=== PATIENT | female | born 1975 | race Caucasian/White ===

== ENCOUNTER 2024-06-09 13:28 | Outpatient (CLI) | payer BC, SELFPAY | END 2024-06-09 13:29 | disposition home or self-care (01) | LOC: MRI 13:30 | PROVIDERS: Visit Provider Orthopaedic Surgery | DX: M25.561 Pain in right knee (principal); S83.241A Other tear of medial meniscus, current injury, right knee, initial encounter; M17.11 Unilateral primary osteoarthritis, right knee; M25.461 Effusion, right knee; M71.21 Synovial cyst of popliteal space [Baker], right knee | CPT/HCPCS: 73721 ==

== ENCOUNTER 2024-06-21 11:43 | Outpatient (CLI) | payer BC, SELFPAY | END 2024-06-21 11:44 | disposition home or self-care (01) | PROVIDERS: PCP Emergency Medicine; Visit Provider Emergency Medicine | DX: Z01.818 Encounter for other preprocedural examination (principal) | CPT/HCPCS: 80048 ==

== ENCOUNTER 2024-06-29 06:01 | Day surgery (SDC) | payer BC, SELFPAY ==
[2024-06-29] VITALS (21 sets, daily range): BP systolic 97–147; BP diastolic 64–115; PULSE 81–101; RESP 8–21; TEMP 35.9–36.9; O2SAT 92–98; BMI 37.2
[2024-06-29] MEDS: LACTATED RINGERS 1000 ML 1,000 ML 100 ML IV ×2 (06:42→10:33)
[2024-06-29] MEDS: SODIUM CHLORIDE 0.9 % (FLUSH) 10 ML SYRINGE IVF (06:42)
[2024-06-29 06:52] LABS: Ur HCG Qualitative* Negative (Negative)
--- NOTE | 2024-06-29 07:04 | W.PM.H&PU ---
History & Physical Update History & Physical Update H&P Reviewed and patient assessed: No changes noted
--- NOTE | 2024-06-29 07:04 | PM.ORPRC ---
Procedure Note Date of procedure: 06/29/24 Procedure: PREOPERATIVE DIAGNOSIS: 1. Right knee medial meniscus root tear 2. Right knee chondromalacia POSTOPERATIVE DIAGNOSIS: 1. Right knee medial meniscus root tear 2. Right knee chondromalacia PROCEDURE: 1. Right knee arthroscopic medial meniscus root repair SURGEON: Tariq Roberson M.D. IT TELECOM TECHNICIAN: Jade Sanchez P.A.-C.. An patient clerical assistant was critical for this case to aid in patient positioning, knee manipulation, instrument exchange, and closure. ANESTHESIA: Spinal EBL: 5 mL TOURNIQUET: 95 minutes at 250 mmHg COMPLICATIONS: None evident IMPLANTS: Arthrex SutureLoc Implant INDICATIONS: Patient is a 49-year-old female with recent history of right knee pain and locking. MRI was performed, which revealed a medial meniscus root tear. Recommendation was subsequent made for surgical intervention consisting medial meniscus root repair to improve symptoms and reduce risk and rate of arthritis progression. I to surgery risks and benefits of procedure discussed with patient all questions were answered and informed consent was obtained. FINDINGS: Examination under anesthesia revealed negative Robyn's and posterior drawer. Knee was stable to varus and valgus stress. Arthroscopic examination revealed a complete tear of the medial meniscus at its posterior root attachment. Diffuse grade 3 chondromalacia involving the medial femoral condyle and medial tibial plateau with grade 2 to grade 3 chondral changes of the lateral tibial plateau. Grade 3 chondromalacia of the central trochlea and central patella. Normal cartilage of the lateral femoral condyle. ACL and PCL intact. Lateral meniscus was intact. DESCRIPTION OF PROCEDURE: Patient was seen preoperatively and operative site was marked. She was then brought to the operating room where spinal anesthesia was administered. Patient was then placed supine on the operating table, and she was given IV Ancef preoperatively for prophylaxis. The right lower extremity was prepped and draped in the appropriate sterile fashion, and the operative leg was placed into the leg uriarte. A surgical time-out was performed confirming patient identity, surgical site, and procedure. The right lower extremity was exsanguinated and tourniquet inflated to 250 mmHg.. Anterolateral and anteromedial portal sites were injected with cortisone Marcaine with epinephrine. Anterolateral portal established with an 11 blade. Anteromedial portals and established after localization with spinal needle. A portion of the retropatellar fat pad was removed with the shaver to allow for adequate visualization. Diagnostic arthroscopy was performed with findings as noted above. Attention was then directed to the repair of the medial meniscus. Arthroscopic shaver and radiofrequency ablator were used to clear soft tissue medial to the PCL to allow for visualization of the root attachment site. Root attachment site was then debrided using the shaver. A passport cannula was placed into the anteromedial portal, and camera was moved into the anterolateral portal. The drill guide inserted and placed in the appropriate position in the center of the root attachment footprint. A small incision was made over the anterior medial proximal tibia to allow for the guide to sit on the cortex of the anterior medial proximal tibia. The 2.4 mm drill pin was drilled to create a transtibial tunnel. After the 1st pass, this tunnel was slightly anterior to the intended fixation site, so tunnel was redrilled. After drilling the tunnel, a SutureLasso was used to shuttle a SutureLoc implant into position. SutureLoc was then secured into position. One of the repair sutures was then passed using the knee scorpion, however, when tensioning this suture the anchor moved anterior into the initial tunnel site. This tunnel site was unacceptable so the SutureLoc sutures were removed and cut. The drill guide was then reinserted and 2.4 drill pin was used to make another transtibial tunnel which was more posterior and slightly medial to the initial tunnel. After confirming this tunnel was in a satisfactory position, shuttle sutures were used to pass a new SutureLoc implant into position. Once the SutureLoc was placed in the subchondral bone, it was tensioned and secured into position. The meniscal scorpion was then used to pass the repair stitch through the meniscal root tissue. Repair stitch was then shuttled through the knotless mechanism. A 2nd repair stitch was then placed through the meniscal root tissue slightly anterior to the 1st repair stitch. It was then shuttled through the knotless mechanism in a similar fashion. Both repair stitches were then tensioned securing the meniscus root back to its footprint. The knee was then cycled several times and repair stitch was for retention. A probe was then introduced and the meniscus was confirmed to be stable and firmly secured to its footprint. The remnant sutures and implant were then cut at the anterior portion of the tibial tunnel. A power pick was then used to microfracture the notch to create bone bleeding to assist in meniscus healing. The tourniquet was then released and blood was noted to emanate from the power pick microfracture sites. At this stage, surgical instruments and a passport cannula were removed, and excess fluid was drained from the joint. Portal sites were closed with 3-0 Vicryl inverted interrupted subcutaneous stitches and Steri-Strips. Anterior medial incision was closed with 2-0 Vicryl inverted mattress sutures and 3-0 Monocryl subcuticular stitches and Dermabond., and closure performed with 4-0 Monocryl with Steri-Strips. Dressings were applied, the tourniquet deflated, and the patient was awoken from anesthesia and transferred to the PACU in stable condition. PLAN: 1. Ice and elevation for pain and swelling. 2. Acetaminophen and oxycodone as needed for pain control. 3. Aspirin 81 mg twice daily for 2 weeks for DVT prophylaxis. 4. Touchdown weight-bearing right lower extremity for 4 weeks. Use crutches for assistance with ambulation. 5. Knee brace to be locked in extension when ambulating. Brace may be unlocked and knee flexed to 90? when not ambulating. 6. Knee range of motion and quad sets/straight leg raise regularly. 7. Physical therapy per the Complex Meniscus Repair Rehabilitation Protocol. 8. Follow up in orthopedic clinic in 1-2 weeks for a wound check.
[2024-06-29] MEDS: CEFAZOLIN 2 GM INJ IVP (07:35)
[2024-06-29] MEDS: BUPIVACAINE 0.25 %/EPI 1:200K 30 ml INJECTION (07:50)
[2024-06-29] MEDS: LACTATED RINGERS 500 ML 500 ML 125 ML IV (08:15)
--- NOTE | 2024-06-29 09:56 | P.ANES_ITS ---
Anesthesia Charges Start Date/Time Anesthesia Start Date: 06/29/24 Anesthesia Start Time: 07:14 Stop Date/Time Anesthesia Stop Date: 06/29/24 Anesthesia Stop Time: 09:56 Coding CPT Codes CPT Codes: ANESTH KNEE JOINT SURGERY - 33994 ([id number]) P2 - PATIENT W/MILD SYST DISEASE, QK - REAL ESTATE REP 2-4 CNCRNT ANES PROC, QX - HAND PLEATER SVC W/ MD MED DIRECTION
--- NOTE | 2024-06-29 09:56 | W.ANESCHARGE ---
Anesthesia Charges Start Date/Time Anesthesia Start Date: 06/29/24 Anesthesia Start Time: 07:14 Stop Date/Time Anesthesia Stop Date: 06/29/24 Anesthesia Stop Time: 09:56 Coding CPT Codes CPT Codes: ANESTH KNEE JOINT SURGERY - [id number] ([id number]) P2 - PATIENT W/MILD SYST DISEASE, QK - SAFE TECHNICIAN 2-4 CNCRNT ANES PROC, QX - SPRINKLER DRIVER SVC W/ MD MED DIRECTION
[2024-06-29] MEDS: fentaNYL 100 MCG/2 ML inj 50 MCG IVP ×2 (10:00→10:07)
--- NOTE | 2024-06-29 10:11 | P.ANES_ITS ---
Anesthesia Charges Start Date/Time Anesthesia Start Date: 06/29/24 Anesthesia Start Time: 07:14 Stop Date/Time Anesthesia Stop Date: 06/29/24 Anesthesia Stop Time: 09:56 Coding CPT Codes CPT Codes: ANESTH KNEE JOINT SURGERY - [id number] ([id number]) QK - TRAPPER BIRD 2-4 CNCRNT ANES PROC, QX - JAR FILLER SVC W/ MD MED DIRECTION, P2 - PATIENT W/MILD SYST DISEASE
--- NOTE | 2024-06-29 10:11 | W.ANESCHARGE ---
Anesthesia Charges Start Date/Time Anesthesia Start Date: 06/29/24 Anesthesia Start Time: 07:14 Stop Date/Time Anesthesia Stop Date: 06/29/24 Anesthesia Stop Time: 09:56 Coding CPT Codes CPT Codes: ANESTH KNEE JOINT SURGERY - [id number] ([id number]) QK - ACTING MANAGER 2-4 CNCRNT ANES PROC, QX - MANAGER STATISTICS SVC W/ MD MED DIRECTION, P2 - PATIENT W/MILD SYST DISEASE
[2024-06-29] MEDS: HYDROmorphone 0.5 mg/0.5 ml inj IVP ×3 (10:14→10:35)
[2024-06-29] MEDS: MEPERIDINE 25 MG/ML INJ 12.5 MG IVP (10:20)
[2024-06-29] MEDS: OxyCODONE/APAP 5-325 TABLET PO (11:42)
--- NOTE | 2024-06-29 12:14 | SUR.PHASEII ---
pt. has been working with PT since 1144. She is stable
--- NOTE | 2024-06-29 13:10 | SUR.PHASEII ---
reviewed d/c instructions with pt and son. All questions answered. Dr. Roberson in room to see pt. Wheelchair out to car with son.
== END 2024-06-29 13:11 | disposition home or self-care (01) ==
PROVIDERS: Anesthesiology; PCP Emergency Medicine; Visit Provider Orthopaedic Surgery
PROC: (CPT 29882; principal; 2024-06-29 07:15)
DX: S83.241A Other tear of medial meniscus, current injury, right knee, initial encounter (principal); M94.261 Chondromalacia, right knee
CPT/HCPCS: 29882; 01400; 81025; 97110; 97116; 97161; A9270; C1713; J0690; J1100; J1171; J2175; J2250; J2405; J2704; J3010; J7120; L1833

== ENCOUNTER 2024-08-11 08:15 | Outpatient (RCR) | payer BC, SELFPAY | END 2024-11-02 09:43 | disposition home or self-care (01) | PROVIDERS: PCP Emergency Medicine; Visit Provider Orthopaedic Surgery | DX: Z48.89 Encounter for other specified surgical aftercare (principal); Z51.89 Encounter for other specified aftercare | CPT/HCPCS: 97032; 97110; 97140; 97161 ==